=== PATIENT | male | born 1965 | race Caucasian/White ===

== ENCOUNTER → 2017-10-30 18:48 | Outpatient (REF) | payer BC, SELFPAY ==
[2017-10-30 20:28] LABS: Abs Immature Grans 0.01 k/cumm (0.0-0.09); Absolute Eosinophil Count 0.03 k/cumm (0.0-0.7); Absolute Lymphocyte Count 1.84 k/cumm (1.2-3.4); Absolute Monocyte Count 0.62 k/cumm (0.11-0.7); Eosinophils % 0.4; HCT 41.8 % (40.0-50.0); HGB 14.7 g/dL (13.5-17.5); Immature Grans % 0.1; Lymphocytes % 25.6; Mean Corp. HGB Concentration 35.2 g/dL (32.0-36.0); Mean Corpuscular Hemoglobin 32.2 pg (27.0-33.0); Mean Corpuscular Volume 91.5 fL (80-95); Mean Platelet Volume 10.9 fL (8.0-11.0); Monocytes % 8.6; Neutrophils % 65.3; Platelet Count 244 x1000/uL (130-400); RBC 4.57 m/cumm (4.50-6.00)
[2017-10-30 20:56] LABS: ALT 33 U/L (12-78); AST 21 U/L (15-37); Albumin 4.1 g/dL (3.4-5.0); Alkaline Phosphatase 74 U/L (46-116); Anion Gap 12.3 mmol/L (3-11); BUN 13 mg/dL (7-18); Bilirubin, Total 0.4 mg/dL (0.2-1.0); CO2 25.7 mmol/L (21.0-32.0); CREATININE 0.85 mg/dL (0.70-1.30); Calcium 9.4 mg/dL (8.5-10.1); Chloride 102 mmol/L (98-107); Glucose 79 mg/dL (70-100); Potassium 3.9 mmol/L (3.5-5.1); Sodium 140 mmol/L (136-145); TSH (W/Ref FT4) 2.19 uIU/mL (0.358-3.74); Total Protein 7.3 g/dL (6.4-8.2)
[2017-10-30 21:12] LABS: Cholesterol 189 mg/dL (50-200); HDL Cholesterol 65 mg/dL (40-60); LDL CHOLESTEROL 113 mg/dL (<100); Triglyceride 88 mg/dL (30-150)
== END ==
LOC: NCHCN 18:48
PROVIDERS: PCP Specialist/Technologist Athletic Trainer; Visit Provider Specialist/Technologist Athletic Trainer
DX: Z00.00 Encounter for general adult medical examination without abnormal findings (principal); F41.8 Other specified anxiety disorders; Z51.81 Encounter for therapeutic drug level monitoring
CPT/HCPCS: 80053; 80061; 83721; 84443; 85025

== ENCOUNTER 2017-11-06 15:45 | Outpatient (RCR) | payer BC, SELFPAY ==
--- NOTE | 2017-10-20 15:45 | PTTR_ITS ---
DATE: October 20, 2017 SUBJECTIVE: Alex reports that he is getting pretty frustrated with the amount of swelling that continues every day to collect in bilateral LE's. He has weaned out of his walking boot. He is in a hiking boot with use of a wedge. He notes that he is having a difficult time avoiding a limp. He recently got back from a work related trip. He had to do a lot of walking and does feel that this put him back a bit. He continues to ice at home for swelling reduction. He is noting a bump on the back of his Achilles at this time. He has not noticed this before. OBJECTIVE: Manual therapy: ([id number]).Gentle soft tissue stretching into dorsiflexion/ plantarflexion. Soft tissue mobilization completed in prone position throughout the gastroc/soleus complex. This followed by A/AAROM into DF/PF, inversion/ eversion within symptom allowance. Therapeutic procedures ([id number]). * X See flow sheet: Completed AROM right ankle. SLS bilateral 10 for 10 seconds each. Sit to stand transfers for functional squat repeating 10 repetitions. Completed side lying hip abduction 15 reps, prone hip extension 15 reps, LAQ 15 reps, prone ham curls 15 reps. * X Provided skilled instruction in proper exercise performance: promoting proper body mechanics * X Provided skilled manual cues to facilitate proper muscle recruitment and/ or movement pattern: avoiding compensatory movement patterns. Ended with cryotherapy to bilateral ankles with use of wedge pillow for elevation for 10 minutes post session. Recommended compression socks for improved edema management throughout the day. Will continue to advance per protocol and within symptom allowance. Will be difficult to progress due to coming from work each day. Continue to mata with the edema management and increased pain due to standing all day. Direct treatment time: 30 minutes Total treatment time: 40 minutes
--- NOTE | 2017-10-22 16:10 | NT_ITS ---
October 22, 2017 Alex aguilar showed for todays scheduled appt.
--- NOTE | 2017-10-29 15:30 | PTTR_ITS ---
DATE: 10/29/17 SUBJECTIVE: Indicated he is slowly improving with walking tolerance. Has not used walking boot for about a week now. Has been trae bandaging both ankles at night to help with swelling. Has used his stationary bike a couple of times and this has not felt too bad. Is no longer using heel lift. OBJECTIVE: Manual therapy: ([id number]). Mobilization of right gastroc / soleus soft tissue while in prone, gentle stretching of right ankle into plantar flexion and dorsi flexion, AAROM into plantar flexion, dorsiflexion, inversion and eversion within pain free ROM. Performed lymph drainage massage while in supine with leg elevated on wedge pillow. Therapeutic procedures ([id number]). * x See flow sheet: Focus on AROM of right ankle and strengthening of right LE. Added 2# resistance with hip PREs and LAQs today. Added NuStep to program at L1 without complaints of pain. * x Provided skilled instruction in proper exercise performance * x Provided skilled manual cues to facilitate proper muscle recruitment and/ or movement pattern * Ended session with cryotherapy x 10 minutes to right ankle. Plan to increase cardio activity time and resistance next session as patient is able to tolerate. Direct treatment time: 35 minutes Total treatment time: 45 minutes
--- NOTE | 2017-10-31 15:30 | PTTR_ITS ---
DATE: 10/31/17 SUBJECTIVE: Alex arrives to department today complaining of increased soreness and swelling occurring throughout. States he actually has been feeling really good up until today. Is unsure of walking on the cement all day is creating this increased irritation. States that he does have to remind himself that he is limping and mentally try to alter this. [place] good following that therapy session. Manual therapy: ([id number]). Did receive soft tissue stretching and gently into dorsiflexion and plantar flexion as well as lymph drainage massage throughout the R LE while in supine and prone positions. A/AAROM into dorsiflexion, plantar flexion, in/eversion were also performed within painfree range. Therapeutic procedures ([id number]). * X See flow sheet: Exercises per R Achilles tendon tear non-operative protocol. Is currently 8 weeks post injury. Did note increased swelling throughout today. We did discuss use of compression hose, which he indicates he will be picking up at the pharmacy after today's session. Did perform single leg stance activity today, but patient did have to keep fingertips on bed due to this being slightly uncomfortable when performing without UE assistance. * Performed open chain hip PRE with 2 1/2# weight,opted to have patient perform prone hamstring curls with no weight today due to increased irritation. Long arc quads were performed with 2 1/2# resistance. Was able to perform sit to stand transfers with quad fatiguing only without complaints of discomfort in Achilles region. Patient was able to perform 7 mins on stationary bicycle at level 1. * x Provided skilled instruction in proper exercise performance: * x Provided skilled manual cues to facilitate proper muscle recruitment and/ or movement pattern: * [] Other: [] Treatment was ended with 10 mins of cryotherapy to R Achilles at no charge. Direct treatment time: 35 mins Total treatment time: 45 mins SG/dl
--- NOTE | 2017-11-04 14:49 | PTTR_ITS ---
DATE: 11/04/17 SUBJECTIVE: Alex indicates he did pick up driver compression hose after his last P.T. session. He does feel these are helpful. Today he feels as though he may be a bit more swollen despite using the compressive hose. Finds being on his feet all day definitely adding to his soreness in the Achilles area. OBJECTIVE: Manual therapy: ([id number]). Did receive soft tissue stretching of ankle dorsiflexion and plantar flexion as well as soft tissue mobs throughout the right lower leg with focus on lymph drainage techniques. AA/AROM into dorsiflexion, plantar flexion, inversion and eversion was also performed x20 repetitions each. Therapeutic procedures ([id number]). * x See flow sheet: focus was on balance and proprioceptive activities as well as light strengthening of the right LE and hip stabilizers. * Verbal and tactile cues were provided throughout the session for proper positioning and isolation of specific muscles. * Ended with cryotherapy x10 min. to the right Achilles region in supine with leg resting on a wedge pillow at no charge Direct treatment time: 45 min. Total treatment time: 55 min. SG/gc
--- NOTE | 2017-11-06 15:45 | PTTR_ITS ---
DATE: 11/06/17 SUBJECTIVE: Indicates pain as a 4/10 on 0 to 10 pain scale. States Achilles is just sore all the time. Standing at work increases swelling. Does have compression stocking but opted to not wear it today to see if it really is helping. No complaints of increased soreness or swelling with therapeutic exercises. Ices occasionally but not regularly, reminded patient that icing and elevating after work would be beneficial. OBJECTIVE: Manual therapy: ([id number]). Mobilization of right ankle consisting of soft tissue stretching into dorsiflexion and plantarflexion, lymph drainage throughout right LE and AA/AROM into right ankle throughout all planes. Noted to be 1 cm larger with figure 8 circumference measurement, in comparison to contralateral ankle, at start of session today. Therapeutic procedures ([id number]). Ambulating without assistive device or heel lift without significant antalgic gait pattern. Stated he does have to remind himself not to limp when at work at times. * x See flow sheet: Focus on balance and proprioceptive activities, as well as open and closed chain strengthening exercises for right lower extremity. Continues to find single leg stance on the right to be challenging due to difficulty finding center of gravity. * x Provided skilled instruction in proper exercise performance * x Provided skilled manual cues to facilitate proper muscle recruitment and/ or movement pattern * Indicated he will apply cryotherapy at home after PT appt today. Plan: Seeing Dr. Li on Friday11/10/17 for recheck. To return to PT on Friday of next week. Direct treatment time: 45 minutes Total treatment time: 45 minutes
--- NOTE | 2017-11-12 15:30 | NT_ITS ---
November 12, 2017 Alex aguilar showed for todays scheduled appt.
--- NOTE | 2017-11-14 10:33 | NT_ITS ---
November 14, 2017 Alex cancelled todays scheduled appt. He is not going to reschedule any further PT appts at this time. He will be considered discharged from our care.
== END 2017-11-14 23:59 | disposition home or self-care (01) ==
LOC: PT 15:45
PROVIDERS: PCP Specialist/Technologist Athletic Trainer; Referring Provider Student in an Organized Health Care Education/Training Program; Visit Provider Student in an Organized Health Care Education/Training Program
DX: S86.011D Strain of right Achilles tendon, subsequent encounter (principal)
CPT/HCPCS: 97110; 97140

== ENCOUNTER 2018-09-26 11:40 | Outpatient (CLI) | payer BC, SELFPAY ==
[2018-09-26 13:19] LABS: ALT 49 U/L (12-78); AST 15 U/L (15-37); Albumin 3.8 g/dL (3.4-5.0); Alkaline Phosphatase 68 U/L (46-116); Anion Gap 9.8 mmol/L (3-11); BUN 19 mg/dL (7-18); Bilirubin, Total 0.5 mg/dL (0.2-1.0); CO2 25.2 mmol/L (21.0-32.0); CREATININE 0.79 mg/dL (0.70-1.30); Calcium 9.5 mg/dL (8.5-10.1); Chloride 106 mmol/L (98-107); Glucose 91 mg/dL (70-100); Potassium 4.2 mmol/L (3.5-5.1); Sodium 141 mmol/L (136-145); TSH 1.16 uIU/mL (0.358-3.74); Total Protein 6.8 g/dL (6.4-8.2)
[2018-09-26 13:33] LABS: Calculated LDL 129 mg/dL; Cholesterol 192 mg/dL (50-200); HDL Cholesterol 58 mg/dL (40-60); Triglyceride 28 mg/dL (30-150)
== END 2018-09-26 12:00 ==
PROVIDERS: PCP Specialist/Technologist Athletic Trainer; Visit Provider Nurse Practitioner Family
DX: F33.2 Major depressive disorder, recurrent severe without psychotic features (principal); Z79.899 Other long term (current) drug therapy
CPT/HCPCS: 36415; 80053; 80061; 83721; 84443

== ENCOUNTER 2023-11-05 23:26 | Outpatient (REF) | payer OTHER, SELFPAY ==
[2023-11-05 14:55] LABS: HCT 45.2 % (40.0-50.0); HGB 15.5 g/dL (13.5-17.5); MCH 32.3 pg (27.0-33.0); MCHC 34.3 % (32.0-36.0); MCV 94 fL (80-95); MPV 11.6 fL (8.0-11.0); Platelet Count 219 10^3/uL (130-400); RDW 12.6 % (11.8-14.1); RDW-SD 43.9 fL; WBC 5.36 10^3/uL (4.4-10.8)
[2023-11-05 15:42] LABS: Hemoglobin A1C 5.2 % (<5.7)
[2023-11-05 15:44] LABS: ALT 42 U/L (16-63); AST 22 U/L (15-37); Albumin 3.9 g/dL (3.4-5.0); Alkaline Phosphatase 80 U/L (46-116); Anion Gap 11.1 mmol/L (3-11); BUN 16 mg/dL (7-18); Bilirubin, Total 0.56 mg/dL (0.2-1.0); CO2 24.9 mmol/L (21.0-32.0); CREATININE 0.9 mg/dL (0.70-1.30); Calcium 9.1 mg/dL (8.5-10.1); Calculated LDL 109 mg/dL (<100); Chloride 103 mmol/L (98-107); Cholesterol 193 mg/dL (<200); Glucose 96 mg/dL (74-106); HDL Cholesterol 74 mg/dL (40-60); Potassium 4.3 mmol/L (3.5-5.1); Sodium 139 mmol/L (136-145); TSH (W/Ref FT4) 2.08 uIU/mL (0.36-3.74); Triglyceride 52 mg/dL (<150)
== END 2023-11-05 23:27 | disposition home or self-care (01) ==
LOC: NCHCN 23:26
PROVIDERS: Visit Provider Family Medicine
DX: F10.90 Alcohol use, unspecified, uncomplicated (principal); E66.9 Obesity, unspecified; Z13.220 Encounter for screening for lipoid disorders
CPT/HCPCS: 80053; 80061; 85027; 83036; 84443

== ENCOUNTER 2024-07-06 14:04 | Observation (INO) | payer OTHER, SELFPAY ==
[2024-07-06] VITALS (36 sets, daily range): BP systolic 114–164; BP diastolic 65–105; PULSE 57–78; RESP 9–19; TEMP 36.4–36.6; O2SAT 91–98
--- NOTE | 2024-07-06 14:00 | RT.EKG_ITS ---
APPROVED REPORT Exam: Resting ECG Reason for Exam: Chest Pain Patient Location: E HR:75 bpm ECG Measurements Heart Rate 75 AXIS AL 159 P 52 QRSd 123 QRS -16 QT 398 T 20 QTc 445 Conclusion Sinus rhythm...normal P axis, V-rate 60- 99 Probable left atrial enlargement...P >50mS, <-0.10mV V1 Right bundle branch block...QRSd>120, terminal axis(90,270) Left ventricular hypertrophy...multiple LVH criteria Normal [place] Nonspecific ST depression precordial v2 - v4
--- NOTE | 2024-07-06 14:07 | W.ED.GENAD ---
Discharge Plan Disposition Patient Disposition: Admit to [facility] Condition: Stable Discharge Details Clinical Impression: Chest pain, TRINIDAD (dyspnea on exertion) Primary Care Provider: Unknown,Unknown ED Provider: Duarte Salinas Home Meds and New Rx's Prescriptions: No Action No Known Home Meds HPI General Mode of arrival: ambulatory. Date/Time Provider Initiated Documentation: 07/06/24 14:06. Limitations to Documentation: no limitations. Information obtained by: patient, RN notes reviewed and old records reviewed. HPI Narrative: Patient presents to ED as a referral from urgent care for left-sided chest pain. Patient reports waking up yesterday morning with chest pain. He reports it has been present since then. Does not seem to radiate anywhere. He was able to work yesterday. He reports that the pain does not really seem to change. However, today exertion is causing him to be very short of breath, weak and fatigued. He has had to take multiple breaks to rest. Stevan finally sent him home and told him that he should be checked out. He went to the urgent care and was appropriately referred to ED for evaluation. He did receive 4 baby aspirin prior to discharge and drove himself to the ED. He reports being a non-smoker. He denies diabetes, hypertension, high cholesterol but does not really see physicians on a regular basis. Denies any first-degree relatives with heart problems. Denies any leg pain or leg swelling. Denies fever or cough. Denies abdominal pain, nausea or vomiting. Related Data Home Medications ?Medication ?Instructions ?Recorded ?Confirmed Unknown [No Known Home Meds] 01/27/23 07/06/24 Allergies Allergy/AdvReac Type Severity Reaction Status Date / Time No Known Allergies Allergy Unverified 07/06/24 14:11 Exam Narrative Exam Narrative: Const: WDWN male in NAD. VS per triage. HEENT: NC/AT. Normal facial exam. Neck: Supple. Trachea midline. Lungs: Normal respiratory effort. Lungs are clear. Chest is NT. Cor: RRR without murmur. Good radial pulses. GI: Soft/ND/NT. Neuro: A+O x 3. Normal speech, mentation, gait. Cranial nerves II - XII grossly intact. No gross motor or sensory deficit. Ext: No C/C/E. No calf tenderness. Medical Decision Making 58-year-old male non-smoker with no known past medical history but lack of primary care or visits for annual wellness presenting with chest pain since yesterday. Pain is substernal and left-sided. There is no radiation but now he is having shortness of breath with exertion with associated weakness and fatigue. His EKG from triage is sinus rhythm with evidence of LVH as well as a right bundle branch block. There is some nondescript ST depression in V2 through V4. There is no acute STEMI. Patient received aspirin at the urgent care. Presentation very concerning for ACS. Will give nitroglycerin to see if any improvement in his pain. He would need 2 IVs, laboratory studies including a D-dimer and chest imaging based on the D-dimer result. 15:40 - Patient's pain went away with 1 sublingual nitroglycerin. About 10 minutes later pain started to come back and resolved again with a nitroglycerin. His initial laboratory studies unremarkable. First troponin is normal. His D-dimer is normal. Chest x-ray per my read with no acute cardiopulmonary process, may be some evidence of cardiomegaly. Patient remains pain-free for the time being after the second nitroglycerin. Second troponin has been drawn and sent. Given his age, presentation, EKG still concern for possible ACS. Will discuss with hospitalist for chest pain observation admission and stress testing if second troponin remains normal. 17:00 - Second troponin remains normal. Patient has had no recurrent chest pain/pressure here. Discussed with hospitalist, Dr. Scott. Will place in chest pain observation overnight. Discussed with patient who is agreeable with plan. Medical Records Medical records reviewed: Yes I reviewed the patient's medical records. Medical records narrative: UC note from today Imaging Data Radiologic Study: Attestation: I personally reviewed and interpreted this imaging study as follows: Imaging: X-Ray My impression: see [facility] Lab Data Lab results reviewed: Yes I reviewed the patient's lab results. Lab results narrative: see [facility] ECG Data Attestation: I personally reviewed and interpreted this ECG (s) as follows: Prior ECG tracings: not available for review Interpretation: see EKG/[facility] Critical Care Time Critical Care Time Critical Care Time: Yes Total Critical Care Time: 45 Attestation: Upon my evaluation, this patient had a high probability of imminent or life-threatening deterioration for potential ACS, which required my direct attention, intervention, and personal management. I have personally provided 45 minutes of critical care time exclusive of time spent on separately billable procedures. Time includes monitoring for potential decompensation, ordering of tests and medications, review of laboratory and radiology results, discussion with consultants and documentation . Interventions were performed as documented above in procedures. PFSH All Active Problems (Updated 07/06/24 @ 17:15 by Duarte Salinas MD) TRINIDAD (dyspnea on exertion) (Acute) Chest pain (Acute) Medical History (Updated 07/06/24 @ 17:15 by Duarte Salinas MD) No significant past medical history Surgical History (Updated 07/06/24 @ 14:26 by Duarte Salinas MD) H/O Achilles tendon repair Social History Smoking/Tobacco Use Status: Never Smoking risk assessment performed?: Yes Alcohol Intake: current Alcohol Intake frequency: a few times a week Drug use: Never Substance use type: former substance user Do you feel safe at home: Yes Do you feel safe in your relationship?: Yes
[2024-07-06] MEDS: nitroGLYcerin 0.4 MG TAB SL ×3 (14:25→20:40)
[2024-07-06 14:28] LABS: Abs Immature Grans 0.03 10^3/uL (0.0-0.06); Absolute Basophil Count 0.03 10^3/uL (0.0-0.2); Absolute Eosinophil Count 0.05 10^3/uL (0.0-0.7); Absolute Neutrophil Count 3.33 10^3/uL (1.2-6.7); Basophils % 0.5 %; Eosinophils % 0.9 %; HCT 45.5 % (40.0-50.0); HGB 15.6 g/dL (13.5-17.5); Immature Grans % 0.5 %; Lymphocytes % 30.1 %; MCH 31.7 pg (27.0-33.0); MCHC 34.3 % (32.0-36.0); MCV 93 fL (80-95); MPV 10.6 fL (8.0-11.0); Monocytes % 8.9 %; Neutrophils % 59.1 %; Platelet Count 213 10^3/uL (130-400); RBC 4.92 10^6/uL (4.36-5.78); RDW 12.5 % (11.8-14.1); RDW-SD 42.7 fL; WBC 5.64 10^3/uL (4.4-10.8)
[2024-07-06 14:44] LABS: ALT 38 U/L (16-63); AST 19 U/L (15-37); Alkaline Phosphatase 77 U/L (46-116); Anion Gap 4.9 mmol/L (3-11); BUN 19 mg/dL (7-18); Bilirubin, Total 0.5 mg/dL (0.2-1.0); CO2 30.1 mmol/L (21.0-32.0); CREATININE 1.1 mg/dL (0.70-1.30); Calcium 9.8 mg/dL (8.5-10.1); Chloride 105 mmol/L (98-107); Estimated GFR 77.81 (mL/min/1.73m2); Glucose 105 mg/dL (74-106); Potassium 3.7 mmol/L (3.5-5.1); Sodium 140 mmol/L (136-145); Total Protein 7.3 g/dL (6.4-8.2); Troponin I 16 ng/L (<or=76)
[2024-07-06 14:53] LABS: D-Dimer 199 ng/mlFEU (<500)
--- NOTE | 2024-07-06 15:33 | DI.RAD_ITS ---
Exam(s) XR CHEST 2V PA LATERAL EXAM: XR CHEST 2V PA LATERAL CLINICAL HISTORY: CP/TRINIDAD. TECHNIQUE: 2D digital imaging was performed. COMPARISON: No exams were available for comparison FINDINGS: 2 views: Heart size is upper normal. The mediastinum is not widened. There is mild elevation the right hemid iaphragm. Lungs are clear. No infiltrates nor pleural effusions. IMPRESSION: No acute pulmonary findings.Mild elevation the right hemidiaphragm. DATA REPOSITORY: RADIATION DOSE DELIVERED:
[2024-07-06 16:40] LABS: Troponin I 15 ng/L (<or=76)
--- NOTE | 2024-07-06 17:10 | W.PM.HP.N ---
Date of service: 07/06/24 Time of Service: 17:10 Assessment and Plan Assessment and plan (1) Chest pain: Status: Acute Assessment and plan: Concerning story c/w cardiac chest pain. Abnormal EKG without comparison. Troponins reassuring. Given the history, I agree with observation on telemetry, echo in morning, MPI when available if willing to stay. Get lipids/A1c to assess risk factors. H/o pericarditis, some EKG changes, but not totally classic. Getting echo. If the workup is negative, can consider NSAIDs/colchicine. (2) Elevated blood pressure reading: Status: Acute Assessment and plan: High on presentation, improved with NTG. Mild elevation in past. Defer hypertension diagnosis to f/u with PCP. Only treat if a/w chest pain or severe >220/110. (3) Obesity, Class II, BMI 35-39.9: Assessment and plan: Discussed. He is motivated to loose, has discussed with new PCP at [facility]. Could consider GLP-1 as outpatient. (4) DVT prophylaxis: Status: Acute Assessment and plan: enoxaparin History of Present Illness History of Present Illness Chief Complaint: chest pain Narrative: 58 yo M with no known past medica history but minimal medical care, BMI 36, presenting with progressive exertional chest pain and pressure that was relieved in the emergency room by nitroglycerin. He woke with the pain yesterday. Pressure-type pain, 5-6/10, left side of his anterior chest. No radiation. Pain is constant, but did improve with nitroglycerin in the ED. It is associated with shortness of breath, that is worse with exertion. It is not associated with nausea/vomiting, dizziness, palpitations, or diaphoresis. The pain and SOB limited his activity over the past day. No change in pain with position or posture or movement of arms. No change after eating. He has never had this pain before, though he did have pericarditis when he was 18 with some similar pain. Review of Systems All systems reviewed & are unremarkable except as noted in HPI and below Musculoskeletal Comments: left pinky side of hand injured 2 weeks ago, still hurts to touch [facility] All Active Problems (Updated 07/06/24 @ 18:55 by Jaime Solomon) DVT prophylaxis (Acute) Right bundle branch block (Acute) Elevated blood pressure reading (Acute) TRINIDAD (dyspnea on exertion) (Acute) Chest pain (Acute) Medical History (Updated 07/06/24 @ 18:55 by Jaime Solomon) Obesity, Class II, BMI 35-39.9 H/O pericarditis age 18 Trauma of soft tissue of neck s/p surgical repair of penetrating trauma (drill bit) right No significant past medical history Surgical History (Updated 07/06/24 @ 18:50 by Jaime Solomon) S/P vasectomy H/O Achilles tendon repair Social History (Updated 07/06/24 @ 18:51 by Jaime Solomon) Smoking/Tobacco Use Status: Never Smoking risk assessment performed?: Yes Alcohol Intake: current Alcohol Intake frequency: a few times a week Drug use: Never Substance use type: former substance user Housing: apartment Do you feel safe at home: Yes Do you feel safe in your relationship?: Yes 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 No acute distress at rest. HEENT: Head atraumatic. Conjunctiva clear, no icterus. PEERL, EOMI. no rhinorrhea. MMM, OP benign. Neck is supple with no masses or lymphadenopathy, trachea midline. no bruits LUNGS: CTAB with normal effort CV: RRR with no murmurs, gallops, or rubs. No elevation JVP. ABD: active bowel sounds, soft, nontender and nondistended. No masses. EXT: no cyanosis, clubbing, or edema. Tender left 5th MCP (recent trauma), but nl ROM. MSK: Chest wall not tender. No joint redness or swelling NEURO: CN 2-12 grossly intact. Normal movement of 4 extremities. Normal speech and coordination. No tremor SKIN: No rashes or open wounds including across chest. PSYCH: normal mood and affect Results Imaging Chest x-ray: report reviewed (No acute pulmonary findings.Mild elevation the right hemidiaphragm. heart borderline enlarged) and image reviewed EKG: report reviewed and image reviewed (NSR 75, nl axis, RBBB, LVH, ~1mm ST depression V2-V6 (no comparison)) Labs 07/06/24 14:21 07/06/24 14:21 Labs: Laboratory Results - last 24 hr 07/06/24 07/06/24 14:21 15:33 WBC 5.64 RBC 4.92 Hgb 15.6 Hct 45.5 MCV 93 MCH 31.7 MCHC 34.3 RDW 12.5 Plt Count 213 MPV 10.6 Immature Gran % 0.5 Neutrophils % 59.1 Lymphocytes % 30.1 Monocytes % 8.9 Eosinophils % 0.9 Basophils % 0.5 Nucleated RBC % 0.0 Absolute Neutrophils 3.33 Absolute Lymphocytes 1.70 Absolute Monocytes 0.50 Absolute Eosinophils 0.05 Absolute Basophils 0.03 D-Dimer 199 Sodium 140 Potassium 3.7 Chloride 105 Carbon Dioxide 30.1 Anion Gap 4.9 BUN 19 H Creatinine 1.1 Est GFR (CKD-EPI 2020) 77.81 Glucose 105 Calcium 9.8 Magnesium 2.0 Total Bilirubin 0.5 AST 19 ALT 38 Alkaline Phosphatase 77 Troponin I 16 15 Total Protein 7.3 Albumin 4.0 Last Vital Signs Temp 36.6 C 07/06/24 14:05 Pulse 57 L 07/06/24 16:46 Resp 14 07/06/24 16:50 BP 155/95 H 07/06/24 16:46 Pulse Ox 96 07/06/24 16:50 PAWSS Have you Been Recently Intoxicated or Drunk Within the Last 30 days?: No Have you Ever Experienced Previous Episodes of Alcohol Withdrawal?: No Have you ever Experienced Withdrawal Seizures?: No Have you ever Experienced Delirium Tremens(DT)s?: No Have you ever undergone Alcohol Rehabilitation Treatment (i.e, inpt ot outpatient treatment programs)?: No Have you ever Experienced Blackouts?: No Have you ever Combined Alcohol with other Downers within the last 90 days?: No Have you ever Combined Alcohol with any other Substance of Abuse during the last 90 days?: No Positive Blood Alcohol level on Presentation? [PCS.BAL]: No Evidence of Increased Autonomic Activity (i.e. HR>120, tremor, sweating, agitation, nausea)?: No Result: 0 Time Spent Time spent with Patient: 55-74 minutes Time was spent: preparing to see the patient(eg.review tests), obtaining and/or reviewing separately otained hiistory, ordering medications,tests, procedures, referring, communicating with other health child caregiver private home, indepentently interpreting results, counseling the patient and care coordination
--- NOTE | 2024-07-06 18:06 | W.PC.ACHO ---
Registration Status: Primary Language: Preferred Language: ED Information & Data Chief Complaint Chest Pain 07/06/24 14:11 Chief Complaint Chest Pain 07/06/24 14:05 Triage Note Patient complaining of CP/ 07/06/24 14:05 SOB for 1 day. Pain is under left breast, non radiating Medical / Surgical History (Last Updated 07/06/24 @ 14:26 by Duarte Salinas MD) No significant past medical history (Last Updated 07/06/24 @ 14:26 by Duarte Salinas MD) H/O Achilles tendon repair Most Recent Vital Signs Temperature 36.6 C 07/06/24 14:05 Pulse 57 L 07/06/24 16:46 Pulse 61 07/06/24 16:50 Respiratory Rate 14 07/06/24 16:50 Respiratory Effort Normal 07/06/24 14:32 Respiratory Depth Normal 07/06/24 14:32 Respiratory Pattern Normal 07/06/24 14:32 Blood Pressure 155/95 H 07/06/24 16:46 Blood Pressure Mean 109 07/06/24 16:46 Pulse Oximetry 96 07/06/24 16:50 Pain Level 0 07/06/24 16:59 Comment nitro given 07/06/24 14:32 Allergies No Known Allergies Allergy (Unverified 07/06/24 14:11) Precautions Isolation Standard precaution 07/06/24 14:11 Active Medications Generic Name Dose Route Start Last Admin Trade Name Freq PRN Reason Stop Dose Admin Nitroglycerin 0.4 mg 07/06/24 14:20 07/06/24 14:36 Nitroglycerin 0.4 Mg Tab SL 0.4 mg Q5 MIN PRN X3 PRN Administration IV IV Catheter Type [Left Hand] Saline Lock IV Catheter Type [Right Saline Lock Antecubital] IV Catheter Gauge [Left Hand] 18 IV Catheter Gauge [Right 18 Antecubital] Diet Orders Category Date Time Status Heart Healthy Eating [DIET] Nutrition 07/06/24 Dinner Active Diagnostics 07/06/24 07/06/24 07/06/24 Range/Units 17:21 15:33 14:21 WBC 5.64 (4.4-10.8) 10^3/uL RBC 4.92 (4.36-5.78) 10^6/uL Hgb 15.6 (13.5-17.5) g/dL Hct 45.5 (40.0-50.0) % MCV 93 (80-95) fL MCH 31.7 (27.0-33.0) pg MCHC 34.3 (32.0-36.0) % RDW 12.5 (11.8-14.1) % Plt Count 213 (130-400) 10^3/uL MPV 10.6 (8.0-11.0) fL Immature Gran % 0.5 % Neutrophils % 59.1 % Lymphocytes % 30.1 % Monocytes % 8.9 % Eosinophils % 0.9 % Basophils % 0.5 % Nucleated RBC % 0.0 (0.0-0.3) % Absolute Neutrophils 3.33 (1.2-6.7) 10^3/uL Absolute Lymphocytes 1.70 (1.2-3.4) 10^3/uL Absolute Monocytes 0.50 (0.1-0.8) 10^3/uL Absolute Eosinophils 0.05 (0.0-0.7) 10^3/uL Absolute Basophils 0.03 (0.0-0.2) 10^3/uL D-Dimer 199 (<500) ng/mlFEU Sodium 140 (136-145) mmol/L Potassium 3.7 (3.5-5.1) mmol/L Chloride 105 (98-107) mmol/L Carbon Dioxide 30.1 (21.0-32.0) mmol/L Anion Gap 4.9 (3-11) mmol/L BUN 19 H (7-18) mg/dL Creatinine 1.1 (0.70-1.30) mg/dL Est GFR (CKD-EPI 2020) 77.81 (mL/min/1.73m2) Glucose 105 (74-106) mg/dL Calcium 9.8 (8.5-10.1) mg/dL Magnesium 2.0 (1.8-2.4) mg/dL Total Bilirubin 0.5 (0.2-1.0) mg/dL AST 19 (15-37) U/L ALT 38 (16-63) U/L Alkaline Phosphatase 77 (46-116) U/L Troponin I Pending 15 16 (<or=76) ng/L Total Protein 7.3 (6.4-8.2) g/dL Albumin 4.0 (3.4-5.0) g/dL Intake and Output - 24 Hour Total 07/06/24 14:04 thru 07/06/24 14:05 Weight 115.666 kg Falls Risk Assessment History of Falls No History 07/06/24 14:34 Contributing Factors No Factors 07/06/24 14:33 Ambulatory Aids Independent 07/06/24 14:33 Tubes/Lines None 07/06/24 14:33 Gait Evaluation No gait disturbance 07/06/24 14:33 Cognition No cognitive impairment 07/06/24 14:33 Fall Total Score 0 07/06/24 14:34 Level of Risk Standard/Low Risk 07/06/24 14:34 Problems (Last Updated 07/06/24 @ 14:26 by Duarte Salinas MD) TRINIDAD (dyspnea on exertion) (Acute) Chest pain (Acute) v v v v v v v v v Sending and/or Receiving Nurses: Please use comment section below to note any information pertinent to the patient hand-off not included above. Information / Comments: Report received from: Polina LEZAMA
[2024-07-06 19:00] LABS: Troponin I 19 ng/L (<or=76)
[2024-07-06] MEDS: Normal Saline Flush 10 ML SYR IVP (21:06)
[2024-07-07 03:22] VITALS: BP 132/80; PULSE 60; RESP 18; TEMP 36.4; O2SAT 98
--- NOTE | 2024-07-07 03:30 | RT.EKG_ITS ---
APPROVED REPORT Exam: Resting ECG Reason for Exam: chest pain Patient Location: I HR:62 bpm ECG Measurements Heart Rate 62 AXIS OK 153 P 48 QRSd 132 QRS -13 QT 414 T -1 QTc 421 Conclusion Sinus rhythm...normal P axis, V-rate 50- 99 Probable left atrial enlargement...P >50mS, <-0.10mV V1 Right bundle branch block...QRSd>120, terminal axis(90,270)
[2024-07-07] MEDS: nitroGLYcerin 0.4 MG TAB SL ×2 (03:34→04:05)
[2024-07-07 04:01] VITALS: BP 110/81
[2024-07-07 04:20] LABS: Troponin I 8 ng/L (<or=76)
[2024-07-07 04:43] LABS: Calculated LDL 96 mg/dL (<100); Cholesterol 180 mg/dL (<200); HDL Cholesterol 68 mg/dL (>or=40); Triglyceride 82 mg/dL (<150)
[2024-07-07 05:10] LABS: Hemoglobin A1C 5.3 % (<5.7)
[2024-07-07] MEDS: Normal Saline Flush 10 ML SYR IVP ×2 (05:35→07:42)
[2024-07-07] MEDS: MORPHine 2 MG/ML SYR 1 MG IVP (05:35)
[2024-07-07 08:10] VITALS: BP 132/90; PULSE 61; RESP 19; TEMP 36.6; O2SAT 96
[2024-07-07 08:50] LABS: Lab Add On Test DONE
[2024-07-07 09:12] LABS: C-Reactive Protein < 0.50 mg/dL (<or=0.5)
--- NOTE | 2024-07-07 09:20 | PDOC.CMIN ---
Date of service: 07/07/24 Time of Service: 09:20 Care Management Initial Assmt Initial Assessment Reason for Hospitalization: Angina Functional Status/Living Situation Patient Presentation: Alex lives in [place] with his Radha. 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 Town of Residence: [place] Resides with: Spouse () Significant Other/Family: Local Natural Supports: Friends and family Employment Status: Employed Instrumental Activities of Daily Living (ADLs): Independent Medications Medication Management: No Issues/Barriers identified Physical Functioning/Mobility Assistive Device: None Advance Directives Advance Directives: Do you have an Advance Directive: N 06/24/16 19:18 AD On File at [facility]: N 06/24/16 19:18 Date Asked 07/06/24 07/06/24 14:19 AD Date Reviewed COLST On File at [facility] COLST Date Scanned Code Status Resuscitation Status Full Code Insurance Coverage/Financial Issues Insurance: [employer] Financial Issues: None identified Care Team Visit Care Team Role Provider Type Unknown Unknown Primary Care Provider STAFF PHYSICIAN Duarte Salinas MD Emergency Provider [facility] STAFF PHYSICIAN Jaime Solomon Admit Provider [facility] STAFF PHYSICIAN Attending Provider Discharge Potential Discharge Needs: PCP F/U Appt Anticipated Barriers to Discharge: None Identified Patient/Family Education Needs: Review discharge instructions, discuss Ask Me Three Transportation: Private vehicle Plan: Discharge home via private vehicle with . Follow up with PCP and discharge plan of care as directed. Per Dr. Solomon, appointment at Diagnostic imaging is planned for tomorrow, then pt should follow up with his PCP at [facility] to go over results and release to work, if appropriate. Letter was faxed to [phone], at patients request. Social Determinants of Health Screening Social Determinants of health last assessed in clinic: 07/06/24 Will the Patient Participate in the Screening?: Unable to obtain Do you worry about having a steady place to live?: yes What is your living situation today?: I have housing today, but am worried about losing it Problems where you live: no known problems In the past 12 months, have you had to go without electric, gas, oil or water in your home?: no Has lack of transportation kept you from medical appointments or from doing things needed for daily living?: no Has anyone in your life made you feel unsafe or unsupported?: no How hard is it for you to pay for the very basics like food, housing, medical care, and heating? Would you say it is:: Not hard at all Do you want help finding or keeping work or a job?: I do not need or want help If for any reason you need help with day-to-day activities such as bathing, preparing meals, shopping, managing finances, etc., do you get the help you need?: I don?t need any help How often do you feel lonely or isolated from those around you?: Never Do you speak a language other than Israeli at home?: No Does the patient want assistance with any of the above?: No Health Related Social Needs Health related social needs: housing instability, housed, with risk of homelessness (Z59.811) PFSH All Active Problems (Updated 07/06/24 @ 18:55 by Jaime Solomon) DVT prophylaxis (Acute) Right bundle branch block (Acute) Elevated blood pressure reading (Acute) TRINIDAD (dyspnea on exertion) (Acute) Chest pain (Acute) Medical History (Updated 07/06/24 @ 18:55 by Jaime Solomon) Obesity, Class II, BMI 35-39.9 H/O pericarditis age 18 Trauma of soft tissue of neck s/p surgical repair of penetrating trauma (drill bit) right No significant past medical history Surgical History (Updated 07/06/24 @ 18:50 by Jaime Solomon) S/P vasectomy H/O Achilles tendon repair Social History (Updated 07/06/24 @ 18:51 by Jaime Solomon) Smoking/Tobacco Use Status: Never Smoking risk assessment performed?: Yes Alcohol Intake: current Alcohol Intake frequency: a few times a week Drug use: Never Substance use type: former substance user Housing: house Do you feel safe at home: Yes Do you feel safe in your relationship?: Yes 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
[2024-07-07 11:50] VITALS: BP 122/77; PULSE 58; RESP 18; TEMP 36.6; O2SAT 97
--- NOTE | 2024-07-07 13:45 | PHA.REVIEW2 ---
Pharmacy Admission Review Admission Clinical Review Admission Pharmacy Review: DVT prophylaxis (Acute) Elevated blood pressure reading (Acute) TRINIDAD (dyspnea on exertion) (Acute) Chest pain (Acute) No Known Allergies Allergy (Unverified 07/06/24 14:11) Resuscitation Status Full Code Height 5 ft 10 in Weight 118.841 kg Comments Comments/Follow Ups: stress test tomorrow Pharmacy Admission Review Renal Dosing Renal Dosing: BUN 19 mg/dL (7-18) H 07/06/24 14:21 Creatinine 1.1 mg/dL (0.70-1.30) 07/06/24 14:21 Medications needing adjustments: Reviewed (CrCl 94.57 mL/min) List of meds needing interventions: Current medications are okay Anticoagulation Anticoagulation: Hgb 15.6 g/dL (13.5-17.5) 07/06/24 14:21 Hct 45.5 % (40.0-50.0) 07/06/24 14:21 Plt Count 213 10^3/uL (130-400) 07/06/24 14:21 Creatinine 1.1 mg/dL (0.70-1.30) 07/06/24 14:21 DVT Prophylaxis: Reviewed Medications: Enoxaparin (40mg daily) Relevant Labs Relevant Labs: Sodium 140 mmol/L (136-145) 07/06/24 14:21 Potassium 3.7 mmol/L (3.5-5.1) 07/06/24 14:21 Chloride 105 mmol/L (98-107) 07/06/24 14:21 Magnesium 2.0 mg/dL (1.8-2.4) 07/06/24 14:21 C-Reactive Protein < 0.50 mg/dL (<or=0.5) 07/07/24 03:55 Electrolytes, C-Reactive P, ESR: Reviewed (No new labs for today) Cardiac Review Cardiac Review: Troponin I 8 ng/L (<or=76) 07/07/24 03:55 BP, HR, EF%: Reviewed (BP WNL, HR 58) QTc Review QTc: Reviewed (445 from 07/06/24) IV to PO Switch IV Medications: Reviewed Home Meds Home Med List reviewed: Reviewed Relevent Home Meds Not ordered & why?: No known home meds Current Meds Current Medication Order Review: Intervened Comments: Changed IV ED access order Pharmacy Antibiotic Review Relevant Labs: Relevant Labs 07/07/24 03:55 C-Reactive Protein < 0.50 Comments Comments/Follow Ups: stress test tomorrow
--- NOTE | 2024-07-07 13:47 | W.PM.DS.N ---
Date of service: 07/07/24 Time of Service: 13:47 DS: Diagnosis Discharge Diagnosis (1) Chest pain: Status: Acute (2) Elevated blood pressure reading: Status: Acute (3) Obesity, Class II, BMI 35-39.9: (4) DVT prophylaxis: Status: Acute Discharge Plan Disposition Patient Disposition: Home Condition: Stable Discharge Details Reason For Visit: Angina Admit Date/Time: 07/06/24 17:05 Admit Provider: Jaime Solomon Attending Provider: Jaime Solomon Primary Care Provider: Unknown,Unknown Hospital Course Hospital Course: 58 yo M with no known past medical history but minimal medical care, BMI 36, presenting with progressive exertional chest pain and pressure that was relieved in the emergency room by nitroglycerin. Pain was left sided under the breast. His EKG showed a RBBB and ~1mm lateral ST depression but no STEMI. Troponins were negative. The pain was mild after a dose of nitroglycerin and a drop his bloop pressure which was initially in the 160s systolic, but it never completely went away. He had some worse pain overnight 07/06 and EKG was unchanged and troponins remained negative. He reported a remote history of pericarditis, but the pain was not classic for this and the CRP was low. He had a normal echocardiogram with normal pericardium and cardiac function. He strongly preferred discharge and outpatient stress/MPI. This was ordered for 07/08 as an outpatient. His A1c was normal at 5.5% and his lipids were low risk with an LDL of 96, HDL of 68, and TC of 180. He was not treated with statin or aspirin. Follow up PCP: Needs follow up appointment to review result of the stress test by the end of this week, preferably Sunday 07/09 Follow up blood pressure, treat hypertension if present. Home Meds and New Rx's Prescriptions: No Action No Known Home Meds Discharge Instructions Additional Instructions: Avoid strenuous physical activity until you have the stress test done and follow up with your provider after. You should have a stress test with imaging on 07/08. No caffeine before the stress test. You should not eat or drink anything but water for at least 4 hours prior to your test as well. Return to the hospital if your chest pain gets worse again. Get a simple blood pressure monitor and check regularly at home. Stand Alone Forms: Nursing Discharge Form Referrals: [facility] [Provider Group] - 07/21/24 11:15 am () Activity:: Activity as Tolerated Equipment/Supplies:: No Equipment Needed Diet:: As Tolerated Discharge Orders Discharge Orders: Discharge Order (Routine); Ordered 07/07/24 Ordered By: Jaime Solomon Other Ambulatory Orders: NM MPI rest & stress grp (Routine) Timeframe: 1 Day Facility: [facility] - Location: DIAGNOSTIC IMAGING Ordered By: Jaime Solomon DS: Summary Time Spent with Patient providing and/or coordinating discharge services: Greater than 30 minutes Status at Discharge Functional status at discharge: independent ambulation Overall status at discharge: patient is back to baseline Mental Status: mental status grossly normal Speech and Movement: speech and movement normal Mood: congruent mood Affect: normal affect Quality:SDOH Health Related Social Needs: Health related social needs housing instability, housed, with risk of homelessness (Z59.811) Exam Narrative Exam Narrative: GEN: Alert and oriented x 4. No acute distress at rest. LUNGS: CTAB with normal effort CV: RRR with no murmurs, gallops, or rubs. No elevation JVP. ABD: active bowel sounds, soft, nontender and nondistended. No masses. EXT: no cyanosis, clubbing, or edema. Tender left 5th MCP (recent trauma), but nl ROM. SKIN: No rashes or open wounds including across chest. PSYCH: normal mood and affect Psych Mental Status: mental status grossly normal Speech and Movement: speech and movement normal Mood: congruent mood Affect: normal affect DS: Data Vitals/I&O Vitals and I&O: Vital Signs Temperature 36.6 C 07/07/24 11:50 Temperature Source Temporal Artery Scan 07/07/24 11:50 Pulse 58 L 07/07/24 11:50 Pulse Rhythm Regular 07/06/24 19:44 Pulse 61 07/06/24 16:50 Respiratory Rate 18 07/07/24 11:50 Respiratory Effort Normal 07/06/24 19:44 Respiratory Depth Normal 07/06/24 19:44 Respiratory Pattern Normal 07/06/24 19:44 Blood Pressure 122/77 07/07/24 11:50 Blood Pressure Mean 109 07/06/24 16:46 Pulse Oximetry 97 07/07/24 11:50 Oxygen Delivery Method Room Air 07/07/24 11:50 Oxygen Flow Rate 0 07/07/24 11:50 Pain Level 0 07/07/24 11:50 Comment Notifying RN 07/07/24 11:50 Comment nitro given 07/06/24 14:32 Intake & Output 07/06/24 07/07/24 07/07/24 23:59 11:59 23:59 Intake Total 300 / 420 120 / 420 Balance 300 / 420 120 / 420 Weight 115.66 kg 118.841 kg Intake: Oral 300 / 420 120 / 420 Other: Urine Color Yellow Urine Appearance Clear Urine Odor Normal Comment Patient voided ind. in the toilet. Data Completed and Pending Labs on day of discharge: Labs from last 24 hours 07/07/24 07/07/24 07/06/24 08:50 03:55 18:25 WBC RBC Hgb Hct MCV MCH MCHC RDW Plt Count MPV Immature Gran % Neutrophils % Lymphocytes % Monocytes % Eosinophils % Basophils % Nucleated RBC % Absolute Neutrophils Absolute Lymphocytes Absolute Monocytes Absolute Eosinophils Absolute Basophils D-Dimer Sodium Potassium Chloride Carbon Dioxide Anion Gap BUN Creatinine Est GFR (CKD-EPI 2020) Glucose Hemoglobin A1c 5.3 Calcium Magnesium Total Bilirubin AST ALT Alkaline Phosphatase Troponin I 8 19 C-Reactive Protein < 0.50 Total Protein Albumin Triglycerides 82 Total Cholesterol 180 LDL Cholesterol, Calc 96 HDL Cholesterol 68 H Add-On Test Request DONE 07/06/24 07/06/24 15:33 14:21 WBC 5.64 RBC 4.92 Hgb 15.6 Hct 45.5 MCV 93 MCH 31.7 MCHC 34.3 RDW 12.5 Plt Count 213 MPV 10.6 Immature Gran % 0.5 Neutrophils % 59.1 Lymphocytes % 30.1 Monocytes % 8.9 Eosinophils % 0.9 Basophils % 0.5 Nucleated RBC % 0.0 Absolute Neutrophils 3.33 Absolute Lymphocytes 1.70 Absolute Monocytes 0.50 Absolute Eosinophils 0.05 Absolute Basophils 0.03 D-Dimer 199 Sodium 140 Potassium 3.7 Chloride 105 Carbon Dioxide 30.1 Anion Gap 4.9 BUN 19 H Creatinine 1.1 Est GFR (CKD-EPI 2020) 77.81 Glucose 105 Hemoglobin A1c Calcium 9.8 Magnesium 2.0 Total Bilirubin 0.5 AST 19 ALT 38 Alkaline Phosphatase 77 Troponin I 15 16 C-Reactive Protein Total Protein 7.3 Albumin 4.0 Triglycerides Total Cholesterol LDL Cholesterol, Calc HDL Cholesterol Add-On Test Request [facility] All Active Problems (Updated 07/06/24 @ 18:55 by Jaime Solomon) DVT prophylaxis (Acute) Right bundle branch block (Acute) Elevated blood pressure reading (Acute) TRINIDAD (dyspnea on exertion) (Acute) Chest pain (Acute) Medical History (Updated 07/06/24 @ 18:55 by Jaime Solomon) Obesity, Class II, BMI 35-39.9 H/O pericarditis age 18 Trauma of soft tissue of neck s/p surgical repair of penetrating trauma (drill bit) right No significant past medical history Surgical History (Updated 07/06/24 @ 18:50 by Jaime Solomon) S/P vasectomy H/O Achilles tendon repair Social History (Updated 07/06/24 @ 18:51 by Jaime Solomon) Smoking/Tobacco Use Status: Never Smoking risk assessment performed?: Yes Alcohol Intake: current Alcohol Intake frequency: a few times a week Drug use: Never Substance use type: former substance user Housing: house Do you feel safe at home: Yes Do you feel safe in your relationship?: Yes 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
--- NOTE | 2024-07-07 15:14 | NUR.NOTE ---
patient Axox4 during shift, had 2/10 lower L rib/chest pain at most, SB on tele, echo read was WNL today, MD Solomon sending pt home with stress test 07/08 at [facility] and referral to [facility]. no new meds, pt understands all education and s/s to report to ED for, all belongings with pt, PIVs removed. Going home with spouse by POV. Nursing Note:
--- NOTE | 2024-07-07 15:17 | CMDISCH_ITS ---
Date of service: 07/07/24 Time of Service: 15:17 LACE Index Scoring Tool Questions: Length of Stay (in days): 1 Was the patient admitted via the E.D.?: Yes E.D. Visits: 1 Answers: Total Score: 5 Risk of Readmission: Low Risk Care Management Discharge Plan Reason for Hospitalization: Angina Discharge Plan: Discharge home via private vehicle with . Follow up with PCP and discharge plan of care as directed. Per Dr. Solomon, appointment at Diagnostic imaging is planned for tomorrow, then pt should follow up with his PCP at [facility] to go over results and release to work, if appropriate. Letter was faxed to [phone], at patients request. No services are ordered prior to discharge. Patient/Family Education Needs: Review discharge instructions and plan to follow up after discharge. Discuss ask me three. SDOH Health Related Social Needs: Health related social needs housing instability, house d, with risk of homelessness (Z59.382)
== END 2024-07-07 15:11 | disposition home or self-care (01) ==
LOC: ER 17:15 → MS 18:23
PROVIDERS: Internal Medicine; Admitting Provider Family Medicine; Emergency Provider Emergency Medicine; Responsible Provider Family Medicine; Visit Provider Family Medicine
DX: R07.89 Other chest pain (principal); R03.0 Elevated blood-pressure reading, without diagnosis of hypertension; R06.09 Other forms of dyspnea; E66.812 Obesity, class 2; I45.10 Unspecified right bundle-branch block; Z68.37 Body mass index [BMI] 37.0-37.9, adult
CPT/HCPCS: 00123; 36415; 80053; 80061; 93005; 96374; 99291; 71046; 83036; 83735; 84484; 85025; 85379; 86140; 93010; 93306; 99222; 99239; G0378; J2270

== ENCOUNTER 2024-07-08 01:02 | Outpatient (CLI) | payer OTHER, SELFPAY ==
--- NOTE | 2024-07-08 06:32 | DI.NM_ITS ---
APPROVED REPORT Exam: Exercise Treadmill Patient Location: Out-Patient Room/Bed: Stress Nurse: Porsha Regalado RN Ordering Provider:JUAN MANUEL FORD, Contact Number: [phone] BMI: 37.58 Baseline Rhythm: Sinus Rhythm, RBBB Indications: Chest pain, abnormal EKG, Medical History Medical History: RBBB, obesity, pericarditis (age 18), trauma of soft tissue of neck, s/p penetrating trauma (drill bit) right. EF 60-65% Cardiac Medications: No known home medications Allergies: NKA Cardiac Risk Factors: Obesity Previous Cardiac Procedures: None Pretest Chest Pain Characteristics: 03/26 chest ache Exercise History: Physically active Physical Disabilities: None Lung Sounds: Clear to auscultation Heart Sounds: Bradycardia Stress Test Details Test: Exercise stress testing was performed using a Catarino protocol. Nuclear Acquisition: Rest Tc-99m/Stress Tc-99m 1 day Rest Isotope: Tc-99m Sestamibi. Dose: 12.0 Date: 07/08/2024 Injection Time: 0845 Stress Isotope: Tc-99m Sestamibi. Dose: 36.0 Date: 07/08/2024 Injection Time: 1024 HR Resting HR Supine: 55 bpm Max Heart Rate (APMHR): 162 bpm Resting HR Standin bpm Target HR (85% APMHR): 138 bpm Max HR Achieved: 143 bpm % of APMHR: 88 Recovery HR: 79 bpm HR response to stress: Normal HR response to stress BP Resting BP Supine: 138/82 mmHg Resting BP Standin/88 mmHg Max BP: 200/92 mmHg Recovery BP: 150/82 mmHg BP response to stress: Normal blood pressure response to stress. ECG Resting ECG: Sinus Bradycardia, RBBB Stress ECG: Sinus Tachycardia, , RBBB ST Change: No significant ST segment changes noted Recovery ECG: Sinus Rhythm, RBBB Recovery ST Change: No significant ST segment changes noted Recovery Arrhythmia: Rare PVC Clinical Reason for Termination: Target HR Achieved Stress Symptoms: Mod SOB Exercise duration: 08 min56 sec Highest Stage Reached: Stage 3: 3.4 mph at 14% grade. Exercise capacity: 10.16 METs Angina Score: Non-Limiting Rate Pressure Product: [id number] Stress ECG Conclusion 1. Resting electrocardiogram showed right bundle branch block 2. Patient exercised on the Catarino protocol and completed workload of 10 METS 3. Normal heart rate and blood pressure response to exercise. The patient achieved 88% of maximal he art rate for age 4. There was no electrocardiographic evidence of myocardial ischemia 5. There were no significant dysrhythmias 6. See MPI report Stress Test Summary STAGE Time (mins) Speed (mph) Grade (%) HR BP SpO2 SYMPTOMS METS Supine 55 138/82 96% Standing 60 140/88 1 3 1.7 10 98 150/70 95% 4.5 2 6 2.5 12 111 200/92 7 3 9 3.4 14 143 Mod SOB 10 1 min recovery 122 150/70 97% Mod SOB 3 min recovery 88 160/78 94% 6 min recovery 79 150/82 98% All symptoms resolved. MPI Conclusion Myocardial perfusion is normal. There is no ischemia or evidence of prior infarction Ejection fraction is 54% with normal wall motion
== END 2024-07-08 01:22 ==
PROVIDERS: PCP Family Medicine; Visit Provider Internal Medicine Cardiovascular Disease
DX: R07.9 Chest pain, unspecified (principal); R06.09 Other forms of dyspnea; I45.10 Unspecified right bundle-branch block
CPT/HCPCS: 78452; 93017